=== PATIENT | male | born 2000 | race Two or more races ===

== ENCOUNTER 2024-01-28 11:05 | Outpatient (REF) | payer MEDICAID, SELFPAY ==
[2024-01-28 14:08] LABS: Estimated Average Glucose 97 mg/dL
[2024-01-28 14:13] LABS: Alanine Aminotransferase 32 U/L (0-40); Albumin Level 4.7 g/dL (3.5-5.0); Alkaline Phosphatase 105 U/L (39-117); Anion Gap 11 (12-20); Aspartate Amino Transferase 20 U/L (5-37); Bilirubin Direct 0.2 mg/dL (0.0-0.5); Bilirubin Total 0.4 mg/dL (0.0-1.0); Blood Urea Nitrogen 11 mg/dL (9-16); Calcium 10.3 mg/dL (8.4-10.2); Carbon Dioxide 25 mmol/L (22-29); Chloride 107 mmol/L (96-108); Cholesterol 166 mg/dL (<200); Estimated Glomerular Filt Rate > 60; Glucose Random 97 mg/dL (60-115); HDL Cholesterol 40 mg/dL (>40); LDL Cholesterol Calculated 84 mg/dL (<100); Potassium 4.2 mmol/L (3.3-5.1); Sodium 139 mmol/L (135-145); Triglycerides 213 mg/dL (<150)
== END 2024-01-28 11:06 | disposition home or self-care (01) ==
LOC: HO.HHCL 11:05
PROVIDERS: Visit Provider Family Medicine
DX: R03.0 Elevated blood-pressure reading, without diagnosis of hypertension (principal); L83 Acanthosis nigricans; E78.1 Pure hyperglyceridemia; Z11.3 Encounter for screening for infections with a predominantly sexual mode of transmission
CPT/HCPCS: 36415; 80048; 80061; 80076; 83036

== ENCOUNTER 2024-11-30 09:01 | Emergency (ER) | payer MEDICAID, SELFPAY ==
[2024-11-30 09:11] VITALS: BP 115/65; PULSE 100; RESP 18; TEMP 37.4; O2SAT 95; BMI 34.4
[2024-11-30 09:39] LABS: MANUAL DIFF FLAG NO
[2024-11-30 09:40] LABS: Basophils Percent Auto 0.2 % (0-2); Hematocrit 43.3 % (42.0-52.0); Imm Gran Abs Auto 0.01 X10*3/uL (0.00-0.03); Imm Gran Pct Auto 0.2 % (0.0-0.4); Lymphocytes Absolute Auto 0.3 X10*3/uL (1.2-4.9); Lymphocytes Percent Auto 5.9 % (20-40); Mean Corpuscular HGB Conc 34.6 g/dl (31.0-36.0); Mean Corpuscular Volume 86.6 fL (80.0-98.0); Mean Platelet Volume 10.4 fL (9.4-12.4); Monocytes Absolute Auto 0.7 X10*3/uL (0.1-1.2); Monocytes Percent Auto 15.4 % (2-11); Neutrophils Absolute Auto 3.7 x10*3/uL (2.0-8.3); Neutrophils Percent Auto 78.3 % (45-73); Platelet Count 216 X10*3/uL (160-400); White Blood Count 4.7 X10*3/uL (4.8-10.8)
[2024-11-30 09:42] LABS: Appearance Urine Clear; Color Urine Dark Yellow; Glucose Urine UA Negative (Negative); Leukocyte Esterase Urine Negative (Negative); Nitrite Urine Negative (Negative); Specific Gravity - Urine >= 1.030 (1.005-1.025); UMIC TRIGGER UACC YES; Urine Blood Negative (Negative); Urine Ketones 15 mg/dL (Negative); Urine Protein 30 (1+) mg/dL (Neg-Trace)
[2024-11-30 09:48] LABS: Bacteria Urine None Seen (None Seen); Hyaline Casts Urine 0-2 /LPF (0-2); RBC Urine 0-2 /HPF (0-2); Squamous Epithelial Cell Urine 0-2 /HPF (0-2); WBC Urine 0-5 /HPF (0-5)
[2024-11-30 10:05] LABS: Anion Gap 10 (12-20); Blood Urea Nitrogen 11 mg/dL (9-16); Calcium 9.5 mg/dL (8.4-10.2); Carbon Dioxide 26 mmol/L (22-29); Chloride 104 mmol/L (96-108); Creatinine Clr Calc Pharmacy 109.2; Estimated Glomerular Filt Rate > 60; Glucose Random 93 mg/dL (60-115); Potassium 4.2 mmol/L (3.3-5.1); Sodium 136 mmol/L (135-145)
--- OUTSIDE RECORDS SUMMARY | 2024-11-30 10:38 | XMS_ITS | Clinical Summary ---
Author Organization [employer] Address [address] [place] [address] [address] [place] [address] Care Team Providers Care Accountant Helper Name Role Phone Luz Marina Rea MD Primary Care Provider [phone] Allergies No known active allergies Medications * This document contains information received from the source organization and may not represent a complete record from that organization. fish oil ([place]-3) 500 MG capsuleIndicati ons:Hypertrigly ceridemia Take 1 capsule (500 mg) by mouth Once per day. 180 capsule 3 02/03/2024 Active Active Problems Problem Noted Date Diagnosed Date Hypercalcemia 02/03/2024 Overview (09/16/2024): Lab Results Component Value Date CA 10.3 (H) 01/28/2024 CA 10.5 (H) 11/01/2022 -vit D, PTH, repeat Ca ordered 02/03/24 -Cr and blucose normal 01/2024 Physical exam 01/28/2024 Prehypertension 01/28/2024 Overview (01/28/2024): -initial BP 01/28/24 136/81, repeat was WNL. 122/78. -will monitor during next visits to reevaluate. -encouraged healthy lifestyle modifications. Assessment & Plan (01/28/2024 10:51 AM EDT): -initial BP 01/28/24 136/81, repeat was WNL. 122/78. -will monitor during next visits to reevaluate. -encouraged healthy lifestyle modifications. Routine screening for STI (sexually transmitted infection) 01/28/2024 Depression, unspecified 06/25/2023 Overview (01/28/2024): New onset 05/2023 with 4 days crying and insomnia, improved then spontaneous crying without trigger or current known etiology. Seen by behavior health. Agrees to therapy. Normal neuro exam. -trial of fluoxetine 20 mg daily 06/2023 -no suicidial or homacidial ideation -reports not taking Fluoxetine. -Mood improved and stable 01/28/24 Assessment & Plan (01/28/2024 10:40 AM EDT): New onset 05/2023 with 4 days crying and insomnia, improved then spontaneous crying without trigger or current known etiology. Seen by behavior health. Agrees to therapy. Normal neuro exam. -trial of fluoxetine 20 mg daily 06/2023 -no suicidial or homacidial ideation -reports not taking Fluoxetine. -Mood improved and stable 01/28/24 Assessment & Plan (06/25/2023 1:54 PM EST): PROGRESS NOTE: ID: Christopher is a 22 y.o. cis-male (pronouns he/him/his) with previous documented hx of Depression, no previous hx of MH services, who presents for Depression and Anxiety. He lives with his mother and siblings. He verbalized finished school 2 years ago and is not currently working or in college. Christopher reported no Hx of trauma in his lifespan. Verbalized mostly isolating and playing video games. During IBH Consult Christopher presenting with loss of interests/pleasure , changes in sleep difficulty staying asleep and restless, unsatisfying sleep, trouble concentrating and excessive worry/anxiety, difficulty controlling worry, restless/keyed up/On edge, easily fatigued, difficulty concentrating/Mind going blank , irritability, and sleep disturbance difficulty staying asleep and restless, unsatisfying sleep; for a period of 1 mo, for all symptoms in the context of patient was not able to identify stressors, but verbalized he often isolates, he is always at home. 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 Christopher go out with friend and smoke cannabis and drink socially. He reported feel supported by mother and siblings. PCP prescribed prozac 20mg and will follow up with him in a month. PLAN: (check all that apply) New/Additional Services needed: Off-site services for Behavioral Health Integration Plan: Internal Follow up with [facility] Externa:l OP therapy referral Patient Self Plan Patient to utilize skills provided in intervention , Patient to reach out to [facility] team as needed, and Comply with medication. Assessment & Plan (06/25/2023 12:13 PM EST): New onset 05/2023 with 4 days crying and insomnia, improved then spontaneous crying without trigger or current known etiology. Seen by behavior health. Agrees to therapy. Normal neuro exam. -trial of fluoxetine 20 mg daily -no JOSE -return 1 month Moderate anxiety 06/25/2023 Preventative health care 11/01/2022 Overview (01/28/2024): -next physical exam due after 10/2023 -eye care facilitated by [place] -dental home is [facility] and sees other tonal regulator for braces. -health care proxy given and filed 01/28/24 Assessment & Plan (01/28/2024 10:39 AM EDT): -next physical exam due after 10/2023 -eye care facilitated by [place] -dental home is [facility] and sees other tonal regulator for braces. -health care proxy given and filed 01/28/24 Assessment & Plan (06/25/2023 9:08 AM EST): -next physical exam due after 10/2023 -eye care facilitated by -[facility] Assessment & Plan (11/01/2022 9:10 AM EDT): Next PE due after 10/2023. Hypertriglyceridemia 10/30/2022 Overview (02/03/2024): Lab Results Component Value Date CHOL 166 01/28/2024 TRIG 213 (H) 01/28/2024 TRIG 175 (H) 11/01/2022 HDL 40 (L) 01/28/2024 LDLCHOLCAL 84 01/28/2024 -omega 3 fatty acids started 02/03/24 -continue lifestyle modification -recheck labs Apr, order placed Assessment & Plan (01/28/2024 10:39 AM EDT): Lab Results Component Value Date CHOLESTEROL 152 11/01/2022 HDLCHOL 48 11/01/2022 TRIG 175 (H) 11/01/2022 LDLCHOL 77 11/01/2022 CHOLHDLRAT 3.2 11/01/2022 NONHDLCHOL 104 11/01/2022 -continue lifestyle modifications -re-ordered labs 01/28/24 Assessment & Plan (06/25/2023 9:07 AM EST): Lab Results Component Value Date CHOLESTEROL 152 11/01/2022 HDLCHOL 48 11/01/2022 TRIG 175 (H) 11/01/2022 LDLCHOL 77 11/01/2022 CHOLHDLRAT 3.2 11/01/2022 NONHDLCHOL 104 11/01/2022 -continue lifestyle modifications Acanthosis nigricans 02/05/2022 Overview (01/28/2024): Lab Results Component Value Date HGBA1C 5.0 11/01/2022 HGBA1C 4.9 10/16/2020 GLUCOSE 90 11/01/2022 -re-ordered labs 01/28/24 Assessment & Plan (01/28/2024 10:40 AM EDT): Lab Results Component Value Date HGBA1C 5.0 11/01/2022 HGBA1C 4.9 10/16/2020 GLUCOSE 90 11/01/2022 -re-ordered labs 01/28/24 Assessment & Plan (06/25/2023 9:07 AM EST): General Chem Profile to be performed., Hemoglobin A1c to be performed., Lipid Panel to be performed. and TSH to be performed. Assessment & Plan (10/31/2022 10:52 AM EDT): General Chem Profile to be performed., Hemoglobin A1c to be performed., Lipid Panel to be performed. and TSH to be performed. Encounters Date Type Department Care Team Description 10/26/[address] [facility] [address] [place] [address] Luz Marina Rea MD January Recalls 09/03/2024 Population Health Risk Score [facility] () [address] [address] Provider, Population Health Generic from Last 3 Months Immunizations Immunization Administration Dates Next Due DTaP, 5 pertussis antigens 02/23/2008,,06/07/2003,03/22,2002 HPV 9-Valent 10/19/2015 HPV, Quadrivalent 10/13/2014,09/29/2013 Hep A, ped/adol, 2 dose 07/16/2021,05/06/2019 Hep B, Adolescent or Pediatric 08/16/2003,2002,2002 Hib (HbOC) 08/09/2004, 3,03/22/2003,12/21 IPV 02/23/2008, 5,03/22/2003,12/21 Influenza injectable quadriv alent preservative free 07/16/2021,05/06/2019,05/08/2017,10/18 Influenza, IIV3, injectable 03/16/2010, 9,04/08/2007 Influenza, Split (incl. gloria fied surface antigen) 09/29/2013 MMR 02/23/2008,11/29/2003 Meningococcal MCV4P ACYW-135 05/06/2019,10/14/19 15 Pneumococcal Conjugate PCV 7 08/09/2004, 09/14/2003,06/07/2003,03/22,2002 Tdap 10/13/2014 Varicella 02/23/2008,11/29/2003 Social History Tobacco Use Types Packs/Day Years Used Date Smoking Tobacco: Never Passive Smoke Exposure: Never Smokeless Tobacco: Never Alcohol Use Standard Drinks/Week Comments Yes 0 (1 standard drink = 0.6 oz pur e alcohol) recreational Depression Answer Date Recorded Patient Health Questionnaire-9 Score 6 06/25/2023 Patient Health Questionnaire-9 Score 6 06/25/2023 Last PHQ-9: Questionnaire Data Not on file 0 06/25/2023 Housing Stability Answer Date Recorded What is your housing situation today? I have lalitha manrique 01/15/[address] you li ve. Do you have problems with any of the following? None of the above 01/15/2024 Food Insecurity Answer Date Recorded Within the past 12 months, y ou worried that your food would run out before you got money to buy more: Never True 01/15/2024 Within the past 12 months,th e food you bought just didn't last and you didn't have enough money to get more: Never True Transportation Answer Date Recorded In the past 12 months, has l ack of transportation kept you from medical appts, meetings, work or from getting things needed for daily living? No 01/15/2024 Utilities Answer Date Recorded In the past 12 months, has t he electric, gas, oil or water company threatened to shut off services in your home? No 01/15/2024 Depression Answer Date Recorded Patient Health Questionnaire-2 Score 2 06/25/2023 Internet Access Answer Date Recorded Internet Access Q1 Yes 02/23/2024 Internet Access Q2 Not on file 02/23/2024 Sex and Gender Information Value Date Recorded Sex Assigned at Male 04/22/2022 10:19 AM EDT Legal Sex Male 10:19 AM EDT Gender Identity Male 04/22/2022 10:19 AM EDT Sexual Orientation Choose not to disclose 2021 10:19 AM EDT Last Filed Vital Signs Vital Sign Reading Time Taken Comments Blood Pressure 122/78 01/28/2024 10:50 AM EDT Pulse 78 01/28/2024 10:28 AM EDT Temperature 37.2 ??C (98.9 ??F) 01/28/2024 10:28 AM E DT Respiratory Rate 20 01/28/2024 10:28 AM EDT Oxygen Saturation 97% 01/28/2024 10:28 AM EDT Inhaled Oxygen Concentration - - Weight 113 kg (249 lb) 01/28/2024 10:28 AM EDT Height 175.3 cm (5' 9 ) 11/01/2022 9:13 AM EDT Body Mass Index 36.77 11/01/2022 9:13 AM EDT Plan of Treatment Health Maintenance Due Date Last Done Comments Disability Screening 2002 Alcohol/Substance Use Screening 2014 Meningococcal B Vaccine (1 of 2 - Standard) 2018 Chlamydia and Gonorrhea Screening 11/02/2023 11/01/2022 COVID-19 Vaccine ( season) 2024 03/18/2022, 11/22/2020, 10/24/2020 Depression Screening 06/25/2024 06/25/2023, 06/25/19 24 DTaP/Tdap/Td Vaccines (7 - Td or Tdap) 10/13/2024 10/13/2014, 02/23/2008, 08/09/2004, Additional history exists SDOH Screening 01/14/2025 01/15/2024 Family Planning (PISQ) 01/27/2025 01/28/2024 Tobacco Screening 01/27/2025 01/28/2024 Influenza Vaccine (Season Ended) 2025 07/16/2021, 05/06/2019, 05/08/2017, Additional history exists Zoster Vaccines (1 of 2) 2052 RSV Patients and Patients Aged 60 years or older (1 - 1-dose 75+ series) 2077 Hepatitis B Vaccines Completed 08/16/2003, 06/07/2003, 2002 HIB Vaccines Completed 08/09/2004, 05/23, 03/22/2003, Additional history exists Pneumococcal Vaccine: Pediatrics (0 to 5 Years) and At-Risk Patients (6 to 49) Years) Aged Out 08/09/2004, 09/14/2003, 06/07/2003, Additional history exists No longer eligible based on patient's age to complete this topic IPV Vaccines Completed 02/23/2008, 07/25, 03/22/2003, Additional history exists HPV Vaccines Completed 10/19/2015, 09/22, 09/29/2013 Meningococcal Vaccine Completed 05/06/2019, 015 Hepatitis A Vaccines Completed 07/16/2021, 05/06/20 HIV Screening Completed 11/01/2022 Hepatitis C Screening Completed 11/01/2022 RSV under 20 months Aged Out No longe r eligible based on patient's age to complete this topic Rotavirus Vaccines Aged Out No longer eligible based on patient's age to complete this topic Procedures Procedure Name Priority Date/Time Associated Diagnosis Comments URINALYSIS, COMPLETE, WITH REFLEX TO CULTURE Routine 11/30/2024 9:33 AM EDT Hypertriglyceridemi a BASIC METABOLIC PANEL Routine 11/30/2024 9:22 AM EDT Hypertriglyceridemi a CBC WITH AUTO DIFFERENTIAL Routine 11/30/2024 9:22 AM EDT Hypertriglyceridemi a HEPATITIS C AB W/REFL TO HCV RNA, QN, PCR Routine 11/01/2022 9:46 AM EDT Encounter for hepatitis C screening test for low risk patient HIV 1/2 ANTIGEN/ANTIBODY, FOURTH GENERATION W/RFL Routine 11/01/2022 9:46 AM EDT Routine screening for STI (sexually transmitted infection) CHLAMYDIA/N. GONORRHOEAE RNA, TMA, UROGENITAL Routine 11/01/2022 9:46 AM EDT Routine screening for STI (sexually transmitted infection) from Last 3 Months or Most Recently Relevant to Health Maintenance Results * (ABNORMAL) Urinalysis, Complete, with Reflex to Culture (11/30/2024 9:33 AM EDT) Color Urine Dark Yellow [facility] Appearance Urine Clear [facility] PH 6.0 5.0 - 9.0 [facility] Glucose Urine UA Negative Negative mg/dL [facility] Urine Blood Negative Negative [facility] Specific [place] - Urine >=1.030(H) 1.005 - 1.025 [facility] Urine Protein 30 (1+)(A) Neg-Trace mg/dL [facility] Urine Ketones 15 Negative mg/dL [facility] Nitrite Urine Negative Negative [facility] Leukocyte Esterase Urine Negative Negative [facility] RBC Urine 0-2 0 - 2 /HPF [facility] Urine WBC 0-5 0 - 5 /HPF [facility] Urine Squamous Epithelial Cell 0-2 0 - 2 /HPF [facility] Urine Bacteria None Seen None Seen [facility] Hyaline Casts, Urine 0-2 0 - 2 /LPF [facility] 11/30/2024 9:33 AM EDT 11/30/2024 9:37 AM EDT Narrative [facility] - 11/30/2024 9:48 AM EDT [id number], Clean Catch us Generic External Data Provider LAB URINE ORDERAB LES Final Result [facility] [address] [place] [phone] * (ABNORMAL) CBC auto differential (11/30/2024 9:22 AM EDT) White Blood Count 4.7(L) 4.8 - 10.8 X10*3/uL [facility] Red Blood Count 5.00 4.60 - 5.80 X10*6/uL [facility] Hemoglobin 15.0 14.0 - 18.0 g/dl [facility] Hematocrit 43.3 42.0 - 52.0 % [facility] Mean Corpuscular Volume 86.6 80.0 - 98.0 fL [facility] Mean Corpuscular Hemoglobin 30.0 27.0 - 33.0 pg [facility] Mean Corpuscular HGB Conc 34.6 31.0 - 36.0 g/dl [facility] Red Cell Distribution Width 13.0 11.0 - 16.0 % [facility] Platelet Count 216 160 - 400 X10*3/uL [facility] Mean Platelet Volume 10.4 9.4 - 12.4 fL [facility] Neutrophils Percent Auto 78.3(H) 45 - 73 % [facility] Imm Gran Pct Auto 0.2 0.0 - 0.4 % [facility] Lymphocytes Percent Auto 5.9(L) 20 - 40 % [facility] Monocytes Percent Auto 15.4(H) 2 - 11 % [facility] Eosinophils Percent Auto 0.0 0 - 4 % [facility] Basophils Percent Auto 0.2 0 - 2 % [facility] NRBC Pct Auto 0.0 0.0 - 0.2 /100WBC [facility] Neutrophils Absolute Auto 3.7 2.0 - 8.3 x10*3/uL [facility] Imm Gran Abs Auto 0.01 0.00 - 0.03 X10*3/uL [facility] Lymphocytes Absolute Auto 0.3(L) 1.2 - 4.9 X10*3/uL [facility] Monocytes Absolute Auto 0.7 0.1 - 1.2 X10*3/uL [facility] Eosinophils Absolute Auto 0.0 0.0 - 0.4 X10*3/uL [facility] Basophils Absolute Auto 0.0 0.0 - 0.2 X10*3/uL [facility] NRBC Abs Auto 0.000 0.0 - 0.012 X10*3/uL [facility] 11/30/2024 9:22 AM EDT 11/30/2024 9:37 AM EDT us Generic External Data Provider LAB BLOOD ORDERAB LES Final Result [facility] [address] [place] [phone] * (ABNORMAL) Basic Metabolic Panel (11/30/2024 9:22 AM EDT) Sodium 136 135 - 145 mmol/L [facility] Potassium 4.2 3.3 - 5.1 mmol/L [facility] Chloride 104 96 - 108 mmol/L [facility] Carbon Dioxide 26 22 - 29 mmol/L [facility] Anion Gap 10(L) 12 - 20 [facility] Urea Nitrogen (BUN) 11 9 - 16 mg/dL [facility] Creatinine, Serum 1.31 0.5 - 1.4 mg/dL [facility] Creatinine Clr Calc Pharmacy 109.2 [facility] Comment:eGFR (calculated fro m the MDRD study equation) and eCrCl(calculated from the Cockcroft-Gault equation) are based ondifferent parameters and may not yield comparable results.If eCrCl result is absurd, please check patient'sheight/weight. Estimated Glomerular Filt Rate >60 [facility] Comment:Chronic Kidney Disea se: Estimated GFR < 60 mL/min/[id number] Kidney Disease: Estimated GFR < 15 mL/min/1.73m2 Glucose 93 60 - 115 mg/dL [facility] Calcium 9.5 8.4 - 10.2 mg/dL [facility] 11/30/2024 9:22 AM EDT 11/30/2024 9:37 AM EDT us Generic External Data Provider LAB BLOOD ORDERAB LES Final Result [facility] [address] [place] [phone] * Hepatitis C Antibody with Reflex to HCV, RNA, Quantitative, Real-Time PCR (11/01/2022 9:46 AM EDT) Hepatitis C Antibody NON-REACT HAL NON-REACT HAL [facility] Index 0.13 <1.00 [facility] Comment: HCV antibody was non-reactive. There is no laboratory evidence of HCV infection. In most cases, no further action is required. However, if recent HCV exposure is suspected, a test for HCV RNA (test code 69475) is suggested. For additional information please refer to http://education.BlockBeacon/faq/BJG62s5 (This link is being provided for informational/ educational purposes only.) Blood Venous blood specimen / Unknown 11/01/2022 9:46 AM EDT 11/01/2022 9:47 AM EDT Narrative [facility] - 11/02/2022 1:17 PM EDT FASTING:YES FASTING: YES us Luz Marina Rea MD LAB BLOOD ORDERABLES Final Result Performing Organization Address [facility]/ZIP Co de Phone Number [facility] [address], [facility] [place] [address] [facility] [address] [place] [address] * Chlamydia/N. Gonorrhoeae RNA, TMA, Urogenitial (11/01/2022 9:46 AM EDT) Pathologist [facility] Chlamydia trachomatis RNA, TMA, Urogenital NOT DETECTED NOT DETECTED [facility] Neisseria gonorrhoeae RNA, TMA, Urogenital NOT DETECTED NOT DETECTED [facility] (Always Message) [facility] Comment: The analytical performance characteristics of this assay, when used to test SurePath(TM) specimens have been determined by [facility]. The modifications have not been cleared or approved by the FDA. This assay has been validated pursuant to the CLIA regulations and is used for clinical purposes. For additional information, please refer to https://education.BlockBeacon/faq/NBB874 (This link is being provided for information/ educational purposes only.) Urine (Urine, Random) 11/01/2022 9:46 AM EDT 11/01/2022 9:47 AM EDT Narrative [facility] - 11/02/2022 1:17 PM EDT FASTING:YES FASTING: YES Luz Marina Rea MD LAB MICROBIOLOGY - GENERAL ORDERABLES Final Result Performing Organization Address [facility] Co de Phone Number [facility] [address], [facility] [place] [address] [facility] [address] [place] [address] * HIV-1/2 Antigen and Antibodies, Fourth Generation, with Reflexes (11/01/2022 9:46 AM EDT) Pathologist [facility] HIV Antigen/Antibody, 4th Generation NON-REAC TIVE NON-REAC TIVE [facility] Comment: HIV-1 antigen and HIV-1/HIV-2 antibodies were not detected. There is no laboratory evidence of HIV infection. PLEASE NOTE: This information has been disclosed to you from records whose confidentiality may be protected by state law. ??If your state requires such protection, then the state law prohibits you from making any further disclosure of the information without the specific written consent of the person to whom it pertains, or as otherwise permitted by law. A general authorization for the release of medical or other information is NOT sufficient for this purpose. ?? For additional information please refer to http://education.BlockBeacon/faq/CAX590 (This link is being provided for informational/ educational purposes only.) The performance of this assay has not been clinically validated in patients less than 2 years old. Blood Venous blood specimen / Unknown 11/01/2022 9:46 AM EDT 11/01/2022 9:47 AM EDT Narrative [facility] - 11/02/2022 1:17 PM EDT FASTING:YES FASTING: YES Luz Marina Rea MD LAB BLOOD ORDERABLES Final Result [facility] [address], [place] [address] [facility] [address] [place] [address] from Last 3 Months or Most Recently Relevant to Health Maintenance Insurance [facility] C3 Advance Directives Documents on File Type Date Recorded Patient Rail Crew Member Expl anation Advance Directives and Living Will 01/28/2024 Health Care Proxy 01/28/24 Care Teams Accountant Helper Relationship Specialty Start Date End Date Luz Marina Rea MD [address] [place] [phone] PCP - General Family Medicine 06/23/18
[2024-11-30] MEDS: Acetaminophen 325 MG TABLET 975 MG PO (12:06)
--- NOTE | 2024-11-30 19:05 | PC.NURSE ---
NO ANSWER WHEN CALLED FROM AT 1900
== END 2024-11-30 19:05 | disposition left against medical advice (07) ==
PROVIDERS: Emergency Provider Emergency Medicine; PCP Family Medicine
DX: R42 Dizziness and giddiness (principal); R20.0 Anesthesia of skin
CPT/HCPCS: 36415; 80048; 81001; 85025; 99281; 99283

== ENCOUNTER 2024-11-30 14:47 | Outpatient (REF) | payer MEDICAID, SELFPAY ==
[2024-11-30 16:26] LABS: Estimated Average Glucose 97 mg/dL
[2024-11-30 16:41] LABS: Alanine Aminotransferase 56 U/L (0-40); Albumin Level 4.8 g/dL (3.5-5.0); Alkaline Phosphatase 113 U/L (39-117); Anion Gap 11 (12-20); Aspartate Amino Transferase 33 U/L (5-37); Bilirubin Direct 0.3 mg/dL (0.0-0.5); Bilirubin Total 0.8 mg/dL (0.0-1.0); Blood Urea Nitrogen 13 mg/dL (9-16); Calcium 9.6 mg/dL (8.4-10.2); Carbon Dioxide 26 mmol/L (22-29); Chloride 103 mmol/L (96-108); Cholesterol 116 mg/dL (<200); Estimated Glomerular Filt Rate > 60; Glucose Random 87 mg/dL (60-115); HDL Cholesterol 34 mg/dL (>40); LDL Cholesterol Calculated 44 mg/dL (<100); Sodium 136 mmol/L (135-145); Total Protein 7.7 g/dL (6.5-8.0); Triglycerides 194 mg/dL (<150)
[2024-11-30 16:50] LABS: Creatinine Urine > 740.00 mg/dL; Parathyroid Hormone Intact 90.8 pg/mL (8.7-77.1)
[2024-11-30 16:59] LABS: TSH reflex Free T4 0.39 uIU/mL (0.32-4.0); Vitamin D 25-OH Total 13.3 ng/mL (>30)
[2024-11-30 18:09] LABS: CT PCR NOT DETECTED (Not Detect.); NG PCR NOT DETECTED (Not Detect.)
== END 2024-11-30 14:48 | disposition home or self-care (01) ==
LOC: HO.HHCL 14:47
PROVIDERS: Visit Provider Family Medicine
DX: Z11.3 Encounter for screening for infections with a predominantly sexual mode of transmission (principal); E83.52 Hypercalcemia; L83 Acanthosis nigricans; R80.9 Proteinuria, unspecified; E78.1 Pure hyperglyceridemia
CPT/HCPCS: 80048; 80061; 80076; 82043; 82306; 82570; 83036; 83970; 84443; 87491; 87591